=== PATIENT | female | born 1940 | race Caucasian/White ===

== ENCOUNTER 2017-01-08 10:39 | Day surgery (SDC) | payer OTHER ==
[2017-01-08] MEDS ORDERED: LIDOCAINE 1% 2 ML INJ ONE (11:04)
[2017-01-08] MEDS ORDERED: LIDOCAINE 1% 2 ML INJ ID PRN (11:11)
[2017-01-08] MEDS ORDERED: LR 1,000 ML IV ONE (11:11)
[2017-01-08] MEDS ORDERED: PROPOFOL/EMULSION 500 MG/50 ML BOTTLE IV ONE (11:59)
[2017-01-08] MEDS ORDERED: LIDOCAINE 2% 5 ML SDV ONE (11:59)
--- NOTE | 2017-01-08 12:05 | PDANEPAE ---
ANE History of Present Illness Patient presents for colonoscopy ANE Past Medical History - Cardiovascular History Hx Hypertension: No Hx Arrhythmias: No Hx Chest Pain: No Hx Coronary Artery / Peripheral Vascular Disease: No Hx CHF / Valvular Disease: No Hx Palpitations: No - Pulmonary History Hx COPD: No Hx Asthma/Reactive Airway Disease: No Hx Recent Upper Respiratory Infection: No Hx Oxygen in Use at Home: No Hx Sleep Apnea: No Sleep Apnea Screening Result - Last Documented: Negative - Neurologic History Hx Cerebrovascular Accident: No Hx Seizures: No Hx Dementia: No - Endocrine History Hx Diabetes: No - Renal History Hx Renal Disorders: No - Liver History Hx Hepatic Disorders: No - Neurological & Psychiatric Hx Hx Neurological and Psychiatric Disorders: No - Cancer History Hx Cancer: Yes Cancer History Comment: corio carcinoma 1966 - Congenital Disorder History Hx Congenital Disorders: No - GI History Hx Gastrointestinal Disorders: No - Other Health History Other Health History: none - Chronic Pain History Chronic Pain: Yes (lower back) - Surgical History Prior Surgeries: hand surgery ANE Review of Systems Review of Systems: - Exercise capacity METS (RN): 5 METS ANE Patient History - Allergies Allergies/Adverse Reactions: Penicillins Allergy (Verified 07/29/12 05:33) - Home Medications Home medications: home medication list seen and reviewed Home Medications: Lipitor 07/29/12 [Last Taken Unknown] - NPO status NPO Status: no food or drink >8 hours NPO Since - Liquids (Date): 01/08/17 NPO Since - Liquids (Time): 08:00 NPO Since - Solids (Date): 01/07/17 NPO Since - Solids (Time): 19:00 - Anes Hx Anes Hx: no prior problems - Smoking Hx Smoking Status: Never smoked - Family Anes Hx Family Hx Anesthesia Complications: none ANE Labs/Vital Signs - Vital Signs Height: 165.1 cm Weight: 69.853 kg ANE Physical Exam - Airway Neck exam: FROM Mallampati Score: Class 2 - Pulmonary Pulmonary: no respiratory distress - Cardiovascular Cardiovascular: regular rate and rhythym - ASA Status ASA Status: II ANE Anesthesia Plan Anesthesia Plan: GA with mask (rba discussed)
--- NOTE | 2017-01-08 12:06 | PDGENHP ---
History & Physical Chief Complaint: phx polyps History of Present Illness: polyps on colonoscopy Pertinent Past, Social, Family History: tobacco none, alcohol rare. fhx nocc or polyps Relevant Physical Exam: a+ox3. CTA. S1S2, RRR. +BS, soft, nt Cardiorespiratory Assessment: class 2
[2017-01-08] MEDS ORDERED: NALOXONE HCL 0.4 MG/ML INJ IVP PRN ×2 (12:18→12:19)
[2017-01-08] MEDS ORDERED: LR 500 ML IV PRN (12:19)
[2017-01-08] MEDS ORDERED: ONDANSETRON 4 MG/2 ML VIAL IVP PRN (12:19)
[2017-01-08] MEDS ORDERED: PHENYLEPHRINE HCL 100 MCG/ML SYR ONE (12:20)
[2017-01-08] MEDS ORDERED: epHEDrine SULFATE 10 MG/ML SYR ONE (12:23)
--- NOTE | 2017-01-08 12:40 | GIREPORT ---
[facility] Surgical Services - Endoscopy Department Patient Name: Davida Tillman Procedure Date: 01/08/2017 10:55 AM Patient Type: Outpatient Attending MD/ ER Physician: Lois Merino Procedure: Colonoscopy Indications: Surveillance: Piecemeal removal of large sessile adenoma last colonosco py (< 3 yrs) Providers: Bryce Ortega MD Medicines: Total IV Anesthesia (TIVA) Complications: No immediate complications. Estimated blood loss: Minimal. Description of Procedure: After obtaining informed consent, the scope was passed under direct vis ion. Throughout the procedure, the patient's blood pressure, pulse, and oxyg en saturations were monitored continuously. The was introduced through the anus and advanced to the cecum, identified by the appendiceal orifice, ileoc ecal valve and palpation. The colonoscopy was performed without difficulty. The patient tolerated the procedure well. The quality of the bowel preparat ion was good. Findings: The digital rectal exam was normal. A medium post polypectomy scar was found in the cecum. The scar tissue was healthy in appearance. There was no evidence of the previous polyp. Bio psies were taken with a cold forceps for histology. Estimated blood loss was minimal. A 2 mm polyp was found in the transverse colon. The polyp was sessile. The polyp was removed with a cold biopsy forceps. Resection and retrieval w ere complete. Estimated blood loss was minimal. A 1 mm polyp was found in the rectum. The polyp was sessile. The polyp was removed with a cold biopsy forceps. Resection and retrieval were comple te. Estimated blood loss was minimal. A few medium-mouthed diverticula were found in the sigmoid colon and descending colon. The exam was otherwise without abnormality. Estimated Blood Loss: Estimated blood loss was minimal. Post Op Diagnosis: - Post-polypectomy scar in the cecum. Biopsied. - One 2 mm polyp in the transverse colon, removed with a cold biopsy forceps. Resected and retrieved. - One 1 mm polyp in the rectum, removed with a cold biopsy forceps. Res ected and retrieved. - Diverticulosis in the sigmoid colon and in the descending colon. - The examination was otherwise normal. Recommendation: - Await pathology results. - My office will call with the pathology result with 5-7 days. If you h ave not heard from my office by 12-14, do not assume the pathology is alaina l, please call [phone] to get the pathology results. - Repeat colonoscopy in 2 years for surveillance based on pathology res ults. If the cecal scar area is w/o any precancerous tissue, then 2 years is correct. - High fiber diet indefinitely. - 30-35 grams of dietary fiber per day. Can use supplemental fiber. - A high fiber diet may decrease risk of complications from diverticulo sis. There is no need to avoid seeds or nuts. - Patient has a contact number available for emergencies. The signs and symptoms of potential delayed complications were discussed with the pat ient. Return to normal activities tomorrow. Written discharge instructions we re provided to the patient. - Continue present medications. - Discharge patient to home (ambulatory). - Return to primary care physician as previously scheduled. - Thank you for allowing me to help in your patient's care. Do not hesi lundy to call with any questions. Attending Participation: I personally performed the entire procedure. oJrdan Wu M.D Bryce Ortega MD 01/08/2017 12:40:20 PM This report has been signed electronicallyMathew MD [place] Number of Addenda: 0 Note Initiated On: 01/08/2017 10:55 AM Total Procedure Duration Time 0 hours 16 minutes 52 seconds [email or web address]
--- NOTE | 2017-01-08 12:42 | POSTANESTH ---
Post Anesthetic Evaluation Cardiovascular Status: Similar to Pre-Op Cond Respiratory Status: Similar to Pre-op Cond. Level of Consciousness/Mental Status: Can Participate in Eval Pain Control: Adequate, Prn Tx Ordered Nausea/Vomiting Control: Adequate, Prn Tx Ordered Complications Possibly Related to Anesthesia: None Noted
--- NOTE | 2017-01-08 12:51 | POSTOPPROG ---
Post Op Note Date of Operation: 01/08/17 Surgeon: Dagoberto Ortega Anesthesiologist: Simi Anesthesia: Other (Specify) (IV general) Pre-op Diagnosis: hx polyps Post-op Diagnosis: small polyps. prev site of cecal polyp looks fine Indication: large sessile adenoma removd in piecemeal Procedure: colon and bx Findings: prev site loks fine, two small polyps noted, diverticulosis Inf/Abcess present in the surg proc area at time of surgery?: No EBL: Minimal (few ml from bx) Total fluids administered: 350 ml LR Complications: none immediate
[2017-01-08 13:16] VITALS: PULSE 85; RESP 16; TEMP 98.1
[2017-01-08 14:21] VITALS: BP 122/83; O2SAT 92
== END 2017-01-08 14:00 | disposition home or self-care (01) ==
LOC: FSGY 10:39
PROVIDERS: ATTEND Internal Medicine Gastroenterology
DX: D12.3 Benign neoplasm of transverse colon (principal); K62.1 Rectal polyp; K57.30 Diverticulosis of large intestine without perforation or abscess without bleeding
CPT/HCPCS: J2370; J2704

== ENCOUNTER → 2017-01-15 | Outpatient (CLI) | payer OTHER | LOC: FIMAGING 15:36 | PROVIDERS: ATTEND Internal Medicine | DX: Z12.31 Encounter for screening mammogram for malignant neoplasm of breast (principal); Z80.3 Family history of malignant neoplasm of breast | CPT/HCPCS: G0202 ==

== ENCOUNTER → 2018-01-08 | Outpatient (CLI) | payer OTHER | LOC: FIMAGING 13:37 | PROVIDERS: ATTEND Internal Medicine | DX: Z12.31 Encounter for screening mammogram for malignant neoplasm of breast (principal); Z80.3 Family history of malignant neoplasm of breast ==